=== PATIENT | female | born 1975 | race Caucasian/White ===

== ENCOUNTER 2019-04-21 01:47 | Emergency (ER) | payer OTHER, SELFPAY ==
--- NOTE | 2019-04-21 01:48 | DI.RAD.S_ITS ---
PROCEDURE: XR CHEST 1V INDICATIONS: Chest pain TECHNIQUE: One view of the chest was acquired. COMPARISON: None. FINDINGS: Surgical changes and devices: None. Lungs and pleura: There are bilateral nodular opacities associated with the anterior aspects of the 1st ribs. Lungs are otherwise clear. No pleural effusions or pneumothorax. Mediastinum: Mediastinal contours appear normal. Heart size is normal. Bones and chest wall: No suspicious bony lesions. Overlying soft tissues appear unremarkable. IMPRESSION: 1. No acute cardiopulmonary disease. Dictated by: Guevara Burleson M.D. on 04/21/2019 at 9:38 Approved by: Guevara Burleson M.D. on 04/21/2019 at 9:46
--- NOTE | 2019-04-21 01:48 | ED.CHESTPAIN ---
HPI - Chest Pain General Chief Complaint: Chest Pain Stated Complaint: Chest, Arm, and Jaw pain for 2 days Time Seen by Provider: 04/21/19 01:47 Source: patient Mode of arrival: EMS Limitations: no limitations History of Present Illness HPI narrative: 43-year-old female here for evaluation of chest pain. Patient states that her symptoms started last evening when she laid down to go to bed. She states she had the same thing the night prior. She also states she had the same thing several weeks ago. She states that it felt like she was having a panic attack. Last evening she stated she laid down and had the same symptoms she had this evening. She states that she just laid in bed and the symptoms never went away. She woke up in the morning and went to work and had no symptoms during the day. She came home from work without any symptoms. Then last evening they came on again. Did not seem to get worse with movement or breathing or palpation. She received aspirin and nitroglycerin by EMS prior to arrival. States that upon arrival here to the emergency department her symptoms seem to be improving. Related Data Allergies Allergy/AdvReac Type Severity Reaction Status Date / Time liquid codeine AdvReac Uncoded 04/21/19 02:00 Review of Systems Constitutional Denies headache(s) ENT Ears, Nose, Mouth, and Throat: Denies headache(s) Cardiovascular Reports chest pain, Denies syncope, Denies rapid heart rate, Denies lightheadedness and Denies dyspnea Respiratory Denies cough and Denies dyspnea Gastrointestinal Gastrointestinal: Denies abdominal pain, Denies nausea and Denies vomiting Musculoskeletal Denies myalgias and Denies arthralgias Integumentary/Breasts Denies rash Neurologic Denies syncope and Denies headache(s) Hematologic/Lymphatic Denies easy bleeding and Denies easy bruising [facility] Medical History Patient denies medical problems (Acute) Social History Smoking Status: Current every day smoker Social History Smoking Status: Current every day smoker Exam Initial Vital Signs Initial Vital Signs: Vital Signs Temperature 98.3 F 04/21/19 02:01 Pulse Rate 63 04/21/19 02:01 Respiratory Rate 18 04/21/19 02:01 Blood Pressure 99/61 04/21/19 02:01 Pulse Oximetry 98 04/21/19 02:01 Const General: cooperative, well developed, well groomed and No acute distress Orientation: alert, awake and oriented x3 HENMT Head: normal to inspection and normocephalic Resp Effort & Inspection: normal respiratory effort Auscultation: clear to auscultation bilaterally Cardio Rate: regular rate Rhythm: regular rhythm Pulses: radial pulses present GI Inspection: non-distended Palpation: soft, No firm and No tender Skin Lesions: no lesions Rashes: no rashes Neuro General: alert, awake and oriented x3 Cognition: normal cognition Speech: speech normal Motor: muscle tone normal throughout Sensory Exam: no sensory deficits noted Extrem General: normal to inspection and capillary refill normal Psych Appearance: grossly normal and well kempt Scores HEART Score Heart Score history: Slightly Suspicious Heart Score EKG: Normal Heart Score Age: < 45 years old Heart Score risk factors: No known risk factors Heart Score troponin: < or = to normal limit Heart Score Total: 0 Course Orders Ordered: ED Orders 04/21/19 01:48 XR chest 1V Stat EKG-12 Lead Stat 04/21/19 01:55 Basic Metabolic Panel Stat Complete Blood Count AUTO DIFF Stat Troponin I Stat 04/21/19 03:55 Troponin I Stat Vital Signs - 8 hr 04/21/19 02:01 04/21/19 02:23 04/21/19 03:30 Temperature 98.3 F 97.6 F Pulse Rate 63 63 58 L Respiratory Rate 18 11 L 14 Blood Pressure 99/61 Blood Pressure [Right Arm] 95/60 95/54 L Pulse Oximetry 98 95 95 04/21/19 04:26 Temperature Pulse Rate 59 L Respiratory Rate 14 Blood Pressure Blood Pressure [Right Arm] 93/59 L Pulse Oximetry 95 MDM - Chest Pain Lab Data Attestation: I reviewed the patient's lab results. Result diagrams: 04/21/19 01:55 04/21/19 01:55 Lab Results 04/21/19 04/21/19 04/21/19 Range/Units 01:55 01:55 03:55 WBC 9.3 (4.5-11.0) X10^3/uL RBC 4.14 (4.0-5.2) X10^6/uL Hgb 13.6 (12.0-16.0) g/dL Hct 39.6 (36-46) % MCV 95.6 (80-100) fL MCH 32.9 (26-34) PG MCHC 34.4 (30-36) % RDW 12.5 (11.6-14.8) % Plt Count 249 (150-400) X10^3/uL Neut % (Auto) 53.7 (50-75) % Lymph % (Auto) 33.8 (25-40) % Phelps % (Auto) 7.7 (3-14) % Eos % (Auto) 3.6 (2-4) % Baso % (Auto) 1.2 (0-2) % Neut # (Auto) 5000 (6255-3851) /uL Lymph # (Auto) 3200 (1012-7361) /uL Phelps # (Auto) 700 (0-900) /uL Eos # (Auto) 300 (0-450) /uL Baso # (Auto) 100 (0-100) /uL Sodium 142 (137-145) mmol/L Potassium 3.9 (3.4-5.1) mmol/L Chloride 111 H (98-107) mmol/L Carbon Dioxide 24 (22-32) mmol/L BUN 17 (7-17) mg/dL Creatinine 0.60 (0.52-1.04) mg/dL Estimated GFR > 60.0 (>60) mL/min BUN/Creatinine Ratio 28.3 H (6-22) Glucose 92 (70-100) mg/dL Calcium 8.8 (8.4-10.2) mg/dL Troponin I 0.015 < 0.012 (0.01-0.034) ng/mL ECG Data Attestation: I personally reviewed and interpreted this ECG as follows: Prior ECG tracings: not available for review Interpretation: Sinus bradycardia Ventricular rate of 59 Normal axis Normal QRS Normal QRS Normal QTC No ST T wave changes MDM Narrative Medical decision making narrative: Patient has a low heart score. EKG is unremarkable. Troponin negative x2. Improvement in symptoms while here in the ER. Low suspicion for ACS. Will hold on further workup for now. Discuss follow-up with her primary provider in order to obtain a stress test. She is given return precautions and follow-up instructions. She expressed understanding and agreement with plan. Discharge Plan Departure Patient Disposition: Home Clinical Impression: Atypical chest pain Discharge Date/Time: 04/21/19 04:58 Instructions: DI for Atypical Chest Pain Activity Restrictions/Additional Instructions: Recommend you talk with your medical insurance coder regarding a referral to have a stress test completed. Until then you have no restrictions on your activity unless you develop the symptoms while exercising. Any work-related restrictions will have to come from your medical department. Return to the emergency department for any new or worsening symptoms Stand Alone Forms: Work Release Note
[2019-04-21 02:01] VITALS: BP 99/61; PULSE 63; RESP 18; TEMP 36.8; O2SAT 98; BMI 27.5
[2019-04-21 02:06] LABS: Add Manual Diff / Slide Review NO; Basophils Absolute Auto 100 /uL (0-100); Basophils Percent Auto 1.2 % (0-2); Eosinophils Absolute Auto 300 /uL (0-450); Eosinophils Percent Auto 3.6 % (2-4); Hematocrit 39.6 % (36-46); Hemoglobin 13.6 g/dL (12.0-16.0); Lymphocytes Absolute Auto 3200 /uL (1100-4500); Lymphocytes Percent Auto 33.8 % (25-40); Mean Corpuscular HGB Conc 34.4 % (30-36); Mean Corpuscular Hemoglobin 32.9 PG (26-34); Mean Corpuscular Volume 95.6 fL (80-100); Monocytes Absolute Auto 700 /uL (0-900); Monocytes Percent Auto 7.7 % (3-14); Neutrophils Absolute Auto 5000 /uL (1500-7000); Neutrophils Percent Auto 53.7 % (50-75); Platelet Count 249 X10^3/uL (150-400); Red Blood Cell Count 4.14 X10^6/uL (4.0-5.2); Red Cell Distribution Width 12.5 % (11.6-14.8); White Blood Cell Count 9.3 X10^3/uL (4.5-11.0)
[2019-04-21 02:14] LABS: BUN Creatinine Ratio 28.3 (6-22); Blood Urea Nitrogen 17 mg/dL (7-17); Calcium 8.8 mg/dL (8.4-10.2); Carbon Dioxide 24 mmol/L (22-32); Chloride 111 mmol/L (98-107); Estimated Glomerular Filt Rate > 60.0 mL/min (>60); Glucose 92 mg/dL (70-100); HEMOLYSIS 18 (0-50); Potassium 3.9 mmol/L (3.4-5.1); Sodium 142 mmol/L (137-145)
[2019-04-21 02:23] VITALS: BP 95/60; PULSE 63; RESP 11; TEMP 36.4; O2SAT 95
[2019-04-21 02:26] LABS: Troponin I 0.015 ng/mL (0.01-0.034)
[2019-04-21 03:30] VITALS: BP 95/54; PULSE 58; RESP 14; O2SAT 95
[2019-04-21 04:26] VITALS: BP 93/59; PULSE 59; RESP 14; O2SAT 95
[2019-04-21 04:26] LABS: Troponin I < 0.012 ng/mL (0.01-0.034)
== END 2019-04-21 04:58 | disposition home or self-care (01) ==
PROVIDERS: Emergency Provider Emergency Medicine
DX: R07.89 Other chest pain (principal)
CPT/HCPCS: 36415; 36591; 71045; 80048; 84484; 85025; 93005; 93010; 99283; 99285

== ENCOUNTER 2020-05-31 13:35 | Emergency (ER) | payer OTHER, SELFPAY ==
[2020-05-31 13:50] VITALS: BP 118/65; PULSE 87; RESP 14; TEMP 36.6; O2SAT 98; BMI 29.2
--- NOTE | 2020-05-31 14:10 | DI.CT.S_ITS ---
PROCEDURE: CT ABDOMEN PELVIS W CON INDICATIONS: concerns for fistula in rectum/vaginal wall TECHNIQUE: After the administration of oral and rectal and intravenous contrast, 5 mm thick sections acquired from the diaphragms to the symphysis. 5 mm thick coronal and sagittal reformats were performed. For radiation dose reduction, the following was used: automated exposure control, adjustment of mA and/or kV according to patient size. COMPARISON: [facility], CR, XR CHEST 1V, 04/21/2019, 1:52. FINDINGS: Image quality: Excellent. ABDOMEN: Lung bases: Lung bases are clear. Heart size is normal. Solid organs: Liver is normal in size and enhancement. Gallbladder has been removed. Biliary system is non-dilated. Pancreas enhances normally. Spleen is normal in size and enhancement. No adrenal nodules. Kidneys are normal in size and enhancement, without hydronephrosis. Peritoneum and bowel: Stomach, small bowel, and colon loops are normal in caliber and wall thickness. No free fluid or air. Nodes and vessels: No retroperitoneal or mesenteric adenopathy. Aorta and inferior vena cava are normal in caliber. Miscellaneous: No ventral hernias. PELVIS: Genitourinary: Bladder wall thickness is normal. This patient is status post hysterectomy. No adnexal masses are seen. Scrutiny is given to the vagina. No definite hyperdense material can be seen within the vagina to suggest rectovaginal fistula based upon these images. Miscellaneous: No inguinal hernias or adenopathy. Bones: No suspicious bony lesions. No vertebral body compression fractures. Mild levoconvex scoliotic curvature is noted. IMPRESSION: No findings of rectovaginal fistula are detected. No hyperdense material can be seen within the vagina in this patient who was given rectal contrast. Incidental note is made of: Cholecystectomy Hysterectomy Levoconvex scoliotic curvature Dictated by: Ahsan Ward M.D. on 05/31/2020 at 16:16 Approved by: Ahsan Ward M.D. on 05/31/2020 at 16:19
--- NOTE | 2020-05-31 14:21 | ED_ITS ---
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 Patient reports severe discomfort and pressure and describes as things are falling out of my vagina. She reports her pain is as aches and intermittent stabbing pain as well. It feels like virginal is gonna burst when she tries bowel movements. And she reports poops coming out of her vagina and noticed this happend in November, January, and before coming into ED. patient also reports has bought smell to her vagina and has unusual discharge which appears to be white and thick with brownish discolor. Patient has not had sexual intercourse last 1.5 years due to pain. She reports chills for last 1 ear but denies fever, nausea or vomiting. Patient is currently waiting for woman's wellness evaluation per her provider next week and hoping to get a referral to [facility]. Related Data Allergies Allergy/AdvReac Type Severity Reaction Status Date / Time guaifenesin Allergy Verified 05/31/20 13:56 lidocaine Allergy Verified 05/31/20 13:56 Review of Systems <LISA Orosco - Last Filed: 05/31/20 20:14> Review of Systems Narrative: General: Denies fever, (+) chills, fatigue, malaise, sweats. HEENT: Denies sinus pain, ear pain, sore throat, difficulty swallowing, dizziness. Respiratory: Denies dyspnea, cough, wheezing, hemoptysis, sputum. Cardiovascular: Denies chest pain, palpitations, orthopnea, edema. Gastrointestinal: Denies nausea, vomiting, abdominal pain, diarrhea, constipation, melena. : See HPI Musculoskeletal: Denies weakness, joint pain or bony pain. Skin: Denies rash, skin lesions, or other. Neurologic: Denies weakness, headache, numbness, change in speech, confusion, seizures, incoordination. Psychiatric: No concerning psychosocial issues. 12-point review of systems is negative except for those stated above. Patient History <LISA Orosco - Last Filed: 05/31/20 20:14> Medical History (Updated 05/31/20 @ 20:00 by LISA Orosco) Neck ache (Acute) Patient denies medical problems (Acute) Surgical History (Updated 05/31/20 @ 20:01 by LISA Orosco) H/O vaginal hysterectomy (Acute) Smoking Status: Current every day smoker alcohol intake frequency: holidays/special occasions only Substance Use Type: does not use Exam <LISA Orosco - Last Filed: 05/31/20 20:14> Narrative Exam Narrative: GEN: Alert, oriented x 3, well appearing and nourished, and in no acute distress. Head: Normal cephalic, atraumatic. No scalp or temporal tenderness, palpable mass or rash. EYES: Pupils are equal, round, and reactive to light and accommodation. Extraocular muscles are intact bilaterally. There is no subconjunctival hemorrhage, exudate and sclera non-icteric. ENT: Hearing grossly intact. Nose without bleeding, purulent discharge or deviation. Mucous membrane moist, no mucosal lesion. Throat without erythema, tonsillar hypertrophy or exudate. Uvula in midline, airway patent. Neck: Trachea in midline. No JVD, non-tender without lymphadenopathy. No masses or thyroid megaly. Supple, non-tender and no meningeal signs. CARDIAC: Normal regular rate and rhythm without murmurs, gallops, or rubs. No chest wall tenderness. No peripheral edema, cyanosis or pallor. Capillary refill is less than 2 seconds. RESPIRATORY: Lungs are clear to auscultate bilaterally. No cough, wheezes, rales, or rhonchi. No stridor, respiratory distress, increase work of breathing, or accessary muscle used. ABD: Abdomen soft, nontender and non-distended. No guarding or rebound tenderness to palpate. Bowel sounds are normal in all 4 quadrants. There is no palpable masses or organomegaly. EXT: Full painless ROM of all extremities with no loss of sensation, strength, effusion or edema. SKIN: Warm, dry, normal color for patient. No erythema, lesions or rash over vi sible areas. BACK: Nontender without deformity or crepitance. No flank tenderness. NEUROLOGICAL: Alert and oriented to place, time and person. Sensation and motor function intact bilaterally. No facial droops, dysphasia. PSYCHIATRIC: Good judgement and reason, without hallucinations, abnormal affect or abnormal behaviors during the examination. Patient is not suicidal. Initial Vital Signs Initial Vital Signs: Vital Signs Temperature 97.9 F 05/31/20 13:50 Pulse Rate 87 05/31/20 13:50 Respiratory Rate 14 05/31/20 13:50 Blood Pressure 118/65 05/31/20 13:50 Pulse Oximetry 98 05/31/20 13:50 External Female Exam: normal external appearance Speculum Exam - Vagina: normal appearance of the vagina, normal vaginal discharge, not erythematous, no foreign bodies and no swelling Speculum Exam - Cervix: other (No abnormal vaginal discharge appreciated.) Bimanual Exam- Vagina & Uterus: normal bimanual exam and uterus absent Bimanual Exam- Adnexa, other: no masses OB/External & Speculum: no foreign bodies <Dao Nielsen MD - Last Filed: 06/01/20 07:21> Initial Vital Signs Initial Vital Signs: Vital Signs Temperature 97.9 F 05/31/20 13:50 Pulse Rate 87 05/31/20 13:50 Respiratory Rate 14 05/31/20 13:50 Blood Pressure 118/65 05/31/20 13:50 Pulse Oximetry 98 05/31/20 13:50 Scores <LISA Orosco - Last Filed: 05/31/20 20:14> GCS [place] coma scale eye opening: Spontaneous [place] coma scale verbal response: Orientated [place] coma scale motor response: Obey commands Mainor coma scale total score: 15 qSOFA Altered Mental Status (GCS <15): No Respiratory rate greater than/equal to 22: No Systolic blood pressure less than or equal to 100: No qSOFA Total: 0 0-1 Not High Risk 1-3 High risk Course <LISA Orosco - Last Filed: 05/31/20 20:14> Orders Ordered: ED Orders 05/31/20 14:10 CT abdomen pelvis w con Stat 05/31/20 14:51 Basic Metabolic Panel Stat Complete Blood Count AUTO DIFF Stat Lactate (Lactic Acid) Stat 05/31/20 17:37 Genital Culture Stat Vital Signs Vital signs: Vital Signs - 8 hr 05/31/20 13:50 05/31/20 17:28 Temperature 97.9 F Pulse Rate 87 75 Respiratory Rate 14 18 Blood Pressure 118/65 117/61 Pulse Oximetry 98 96 <Dao Nielsen MD - Last Filed: 06/01/20 07:21> Orders Ordered: ED Orders 05/31/20 14:10 CT abdomen pelvis w con Stat 05/31/20 14:51 Basic Metabolic Panel Stat Complete Blood Count AUTO DIFF Stat Lactate (Lactic Acid) Stat 05/31/20 17:37 Genital Culture Stat Vital Signs Vital signs: Vital Signs - 8 hr 05/31/20 13:50 05/31/20 17:28 Temperature 97.9 F Pulse Rate 87 75 Respiratory Rate 14 18 Blood Pressure 118/65 117/61 Pulse Oximetry 98 96 MDM - Female Genitourinary <LISA Orosco - Last Filed: 05/31/20 20:14> Differential Diagnosis Differential diagnosis: Likely urinary tract infection and other (Vaginal infection, STI, rectal vaginal fistula, PID) Medical Records Attestation: I reviewed the patient's medical records. Lab Data Attestation: I reviewed the patient's lab results. Result diagrams: 05/31/20 14:51 05/31/20 14:51 Labs: Lab Results 05/31/20 05/31/20 05/31/20 Range/Units 14:04 14:51 14:51 WBC 8.9 (4.5-11.0) X10^3/uL RBC 4.23 (4.0-5.2) X10^6/uL Hgb 14.2 (12.0-16.0) g/dL Hct 40.8 (36-46) % MCV 96.4 (80-100) fL MCH 33.5 (26-34) PG MCHC 34.7 (30-36) % RDW 12.6 (11.6-14.8) % Plt Count 224 (150-400) X10^3/uL Neut % (Auto) 63.0 (50-75) % Lymph % (Auto) 25.9 (25-40) % [place] % (Auto) 7.5 (3-14) % Eos % (Auto) 2.6 (2-4) % Baso % (Auto) 1.0 (0-2) % Neut # (Auto) 5600 (7000-8321) /uL Lymph # (Auto) 2300 (1584-5698) /uL [place] # (Auto) 700 (0-900) /uL Eos # (Auto) 200 (0-450) /uL Baso # (Auto) 100 (0-100) /uL Sodium 137 (137-145) mmol/L Potassium 4.0 (3.4-5.1) mmol/L Chloride 106 (98-107) mmol/L Carbon Dioxide 24 (22-32) mmol/L BUN 17 (7-17) mg/dL Creatinine 0.64 (0.52-1.04) mg/dL Estimated GFR > 60.0 (>60) mL/min BUN/Creatinine Ratio 26.6 H (6-22) Glucose 95 (70-100) mg/dL Lactate (0.7-2.1) mmol/L Calcium 9.2 (8.4-10.2) mg/dL Ur Chlamydia DNA (PCR) Not detected N gonorrhoeae DNA (PCR) Not detected 05/31/20 Range/Units 14:51 WBC (4.5-11.0) X10^3/uL RBC (4.0-5.2) X10^6/uL Hgb (12.0-16.0) g/dL Hct (36-46) % MCV (80-100) fL MCH (26-34) PG MCHC (30-36) % RDW (11.6-14.8) % Plt Count (150-400) X10^3/uL Neut % (Auto) (50-75) % Lymph % (Auto) (25-40) % [place] % (Auto) (3-14) % Eos % (Auto) (2-4) % Baso % (Auto) (0-2) % Neut # (Auto) (8561-9601) /uL Lymph # (Auto) (7849-7758) /uL [place] # (Auto) (0-900) /uL Eos # (Auto) (0-450) /uL Baso # (Auto) (0-100) /uL Sodium (137-145) mmol/L Potassium (3.4-5.1) mmol/L Chloride (98-107) mmol/L Carbon Dioxide (22-32) mmol/L BUN (7-17) mg/dL Creatinine (0.52-1.04) mg/dL Estimated GFR (>60) mL/min BUN/Creatinine Ratio (6-22) Glucose (70-100) mg/dL Lactate 0.7 (0.7-2.1) mmol/L Calcium (8.4-10.2) mg/dL Ur Chlamydia DNA (PCR) N gonorrhoeae DNA (PCR) Urine Dip Bedside Urine Glucose Negative Bedside Urine Bilirubin - Negative Bedside Urine Ketone - Negative Urine Specific [place] 1.015 Bedside Urine Occult Blood - Negative Bedside Urine pH 7.0 Bedside Urine Protein - Negative Bedside Urine Urobilinogen - Negative Bedside Urine Nitrite - Negative Bedside Urine Leukocytes - Negative Esterase Imaging Data CT scan - abdomen/pelvis: Radiologist's Impression: [place] [address] CT Scan Report Signed Patient: Samira Vasquez LMR#: [id number] : 1975Acct:[id number] Age/Sex: 44 / FDate of Service: 05/31/20 Loc: ED Accession Number: [id number] Procedure: CT abdomen pelvis w con Ordering Provider: Jesse Hussein PROCEDURE: CT ABDOMEN PELVIS W CON INDICATIONS: concerns for fistula in rectum/vaginal wall TECHNIQUE: After the administration of oral and rectal and intravenous contrast, 5 mm thick sections acquired from the diaphragms to the symphysis. 5 mm thick coronal and sagittal reformats were performed. For radiation dose reduction, the following was used: automated exposure control, adjustment of mA and/or kV according to patient size. COMPARISON: [facility], CR, XR CHEST 1V, 04/21/2019, 1:52. FINDINGS: Image quality: Excellent. ABDOMEN: Lung bases: Lung bases are clear. Heart size is normal. Solid organs: Liver is normal in size and enhancement. Gallbladder has been removed. Biliary system is non-dilated. Pancreas enhances normally. Spleen is normal in size and enhancement. No adrenal nodules. Kidneys are normal in size and enhancement, without hydronephrosis. Peritoneum and bowel: Stomach, small bowel, and colon loops are normal in caliber and wall thickness. No free fluid or air. Nodes and vessels: No retroperitoneal or mesenteric adenopathy. Aorta and inferior vena cava are normal in caliber. Miscellaneous: No ventral hernias. PELVIS: Genitourinary: Bladder wall thickness is normal. This patient is status post hysterectomy. No adnexal masses are seen. Scrutiny is given to the vagina. No definite hyperdense material can be seen within the vagina to suggest rectovaginal fistula based upon these images. Miscellaneous: No inguinal hernias or adenopathy. Bones: No suspicious bony lesions. No vertebral body compression fractures. Mild levoconvex scoliotic curvature is noted. IMPRESSION: No findings of rectovaginal fistula are detected. No hyperdense material can be seen within the vagina in this patient who was given rectal contrast. Incidental note is made of: Cholecystectomy Hysterectomy Levoconvex scoliotic curvature Dictated by: Ahsan Ward M.D. on 05/31/2020 at 16:16 Approved by: Ahsan Ward M.D. on 05/31/2020 at 16:19 [facility] Narrative Medical decision making narrative: This is a 44 year female who presents to ED with chief complain of pelvic exam with unusual vaginal discharge which appears to be stool which has happened intermittently since November this year. Patient has history of vaginal hysterectomy with bladder sling in 2011 and had experienced complication hand had repair surgery to remove bladder sling in 2013. The patient denies urinary symptoms. CBC without leukocytosis. Unremarkable chemistry test. No indication for UTI. Urine GC/chlamydia and genial culture are pending. Pelvic exam was unremarkable without unusual vaginal discharge, signs of infection. Patient did not have any tenderness with bimanual palpation. No obvious rectovaginal fistula was appreci ated during exam. Patient is afebrile with within normal vital signs. Patient reports she has a follow-up appoint with prior care physician next week for women's wellness exam and she is hoping to get a referral to [facility] specialist for an evaluation for ongoing pelvic pain and unusual vaginal discharge which appears to be like stools. CT test of abdomen/pelvis that was obtained with IV, oral, rectal contrast show findings of rectovaginal fistula. Findings were shared with patient and her significant other. Unclear for patient's pelvic discomfort and unusual discharge or dyspareunia. The patient was encouraged to follow up with primary care physician next week and to discuss a possible referral to [facility] cancer specialist for her symptom including dyspareunia and return precautions. Patient verbalized understanding and agreement with the treatment plan. <Dao Nielsen MD - Last Filed: 06/01/20 07:21> Lab Data Labs: Lab Results 05/31/20 05/31/20 05/31/20 Range/Units 14:04 14:51 14:51 WBC 8.9 (4.5-11.0) X10^3/uL RBC 4.23 (4.0-5.2) X10^6/uL Hgb 14.2 (12.0-16.0) g/dL Hct 40.8 (36-46) % MCV 96.4 (80-100) fL MCH 33.5 (26-34) PG MCHC 34.7 (30-36) % RDW 12.6 (11.6-14.8) % Plt Count 224 (150-400) X10^3/uL Neut % (Auto) 63.0 (50-75) % Lymph % (Auto) 25.9 (25-40) % [place] % (Auto) 7.5 (3-14) % Eos % (Auto) 2.6 (2-4) % Baso % (Auto) 1.0 (0-2) % Neut # (Auto) 5600 (6414-5742) /uL Lymph # (Auto) 2300 (2811-7088) /uL [place] # (Auto) 700 (0-900) /uL Eos # (Auto) 200 (0-450) /uL Baso # (Auto) 100 (0-100) /uL Sodium 137 (137-145) mmol/L Potassium 4.0 (3.4-5.1) mmol/L Chloride 106 (98-107) mmol/L Carbon Dioxide 24 (22-32) mmol/L BUN 17 (7-17) mg/dL Creatinine 0.64 (0.52-1.04) mg/dL Estimated GFR > 60.0 (>60) mL/min BUN/Creatinine Ratio 26.6 H (6-22) Glucose 95 (70-100) mg/dL Lactate (0.7-2.1) mmol/L Calcium 9.2 (8.4-10.2) mg/dL Ur Chlamydia DNA (PCR) Not detected N gonorrhoeae DNA (PCR) Not detected 05/31/20 Range/Units 14:51 WBC (4.5-11.0) X10^3/uL RBC (4.0-5.2) X10^6/uL Hgb (12.0-16.0) g/dL Hct (36-46) % MCV (80-100) fL MCH (26-34) PG MCHC (30-36) % RDW (11.6-14.8) % Plt Count (150-400) X10^3/uL Neut % (Auto) (50-75) % Lymph % (Auto) (25-40) % [place] % (Auto) (3-14) % Eos % (Auto) (2-4) % Baso % (Auto) (0-2) % Neut # (Auto) (2067-7433) /uL Lymph # (Auto) (1162-4568) /uL [place] # (Auto) (0-900) /uL Eos # (Auto) (0-450) /uL Baso # (Auto) (0-100) /uL Sodium (137-145) mmol/L Potassium (3.4-5.1) mmol/L Chloride (98-107) mmol/L Carbon Dioxide (22-32) mmol/L BUN (7-17) mg/dL Creatinine (0.52-1.04) mg/dL Estimated GFR (>60) mL/min BUN/Creatinine Ratio (6-22) Glucose (70-100) mg/dL Lactate 0.7 (0.7-2.1) mmol/L Calcium (8.4-10.2) mg/dL Ur Chlamydia DNA (PCR) N gonorrhoeae DNA (PCR) Urine Dip Bedside Urine Glucose Negative Bedside Urine Bilirubin - Negative Bedside Urine Ketone - Negative Urine Specific [place] 1.015 Bedside Urine Occult Blood - Negative Bedside Urine pH 7.0 Bedside Urine Protein - Negative Bedside Urine Urobilinogen - Negative Bedside Urine Nitrite - Negative Bedside Urine Leukocytes - Negative Esterase Discharge Plan Departure Patient Disposition: Home Clinical Impression: Pelvic pain, Vaginal discharge Discharge Date/Time: 05/31/20 18:10 Instructions: DI for Vaginal Discharge, DI for Pelvic Pain Activity Restrictions/Additional Instructions: You have been diagnosed with [ pelvic discomfort and vaginal discharge. Per pelvic and abdominal CT with IV/oral/rectal contrast, no findings of rectovaginal fistula detected. Tests were unremarkable. Urine test was negative for infection. Pelvic exam was unremarkable. General culture and GC/chlamydia test is pending and you will receive a phone call if you require antibiotic medication treatment.]. What to do: *Take your medications as directed. You can take [id number] Tylenol and or Motrin as needed. *Follow up with your primary care provider next week as scheduled. Let them know you were seen in the ED and that we asked you to be seen in follow up. Please let them know your seen in ED and present to your provider with CT scan result that has been provided to you. *Return to ED if you have any new, worsening, or concerning symptoms, such as [fever, chills, unable to tolerate fluids, worsening pain/discharge, chest pain, breathing difficulty or any acute concerns]. Referrals: [facility] [Outside] <Dao Nielsen MD - Last Filed: 06/01/20 07:21> [facility] Attestation: I was immediately available in the department for consultation. This documentation has been reviewed and I agree with assessment and plan. Supervised by Dao Nielsen MD
[2020-05-31 14:59] LABS: Add Manual Diff / Slide Review NO; Basophils Absolute Auto 100 /uL (0-100); Eosinophils Absolute Auto 200 /uL (0-450); Eosinophils Percent Auto 2.6 % (2-4); Hematocrit 40.8 % (36-46); Hemoglobin 14.2 g/dL (12.0-16.0); Lymphocytes Absolute Auto 2300 /uL (1100-4500); Lymphocytes Percent Auto 25.9 % (25-40); Mean Corpuscular HGB Conc 34.7 % (30-36); Mean Corpuscular Hemoglobin 33.5 PG (26-34); Mean Corpuscular Volume 96.4 fL (80-100); Monocytes Absolute Auto 700 /uL (0-900); Monocytes Percent Auto 7.5 % (3-14); Neutrophils Absolute Auto 5600 /uL (1500-7000); Platelet Count 224 X10^3/uL (150-400); Red Blood Cell Count 4.23 X10^6/uL (4.0-5.2); Red Cell Distribution Width 12.6 % (11.6-14.8); White Blood Cell Count 8.9 X10^3/uL (4.5-11.0)
[2020-05-31 15:15] LABS: Lactate (Lactic Acid) 0.7 mmol/L (0.7-2.1)
[2020-05-31 15:16] LABS: BUN Creatinine Ratio 26.6 (6-22); Blood Urea Nitrogen 17 mg/dL (7-17); Calcium 9.2 mg/dL (8.4-10.2); Carbon Dioxide 24 mmol/L (22-32); Chloride 106 mmol/L (98-107); Estimated Glomerular Filt Rate > 60.0 mL/min (>60); Glucose 95 mg/dL (70-100); HEMOLYSIS 21 (0-50); Sodium 137 mmol/L (137-145)
--- NOTE | 2020-05-31 15:50 | PC.NURSE ---
Patient reports had hysterectomy in October with bladder sling inserted. Reports symptoms began shortly after procedure and feels as though sling is not working correctly. Reports difficulty urinating, pressure and discomfort in vaginal region, and stool discharge out of vagina after BM.
[2020-05-31 17:28] VITALS: BP 117/61; PULSE 75; RESP 18; O2SAT 96
[2020-05-31 21:54] LABS: Urine N gonorrhoeae NOT DETECTED
[2020-05-31 21:59] LABS: Urine Chlamydia NOT DETECTED
== END 2020-05-31 18:10 | disposition home or self-care (01) ==
PROVIDERS: Emergency Provider Nurse Practitioner Family
DX: R10.2 Pelvic and perineal pain (principal); N89.8 Other specified noninflammatory disorders of vagina
CPT/HCPCS: 36415; 74177; 80048; 81003; 83605; 85025; 87070; 87147; 87205; 87491; 87591; 99284; 99285; Q9967

== ENCOUNTER → 2021-01-20 16:09 | Outpatient (CLI) | payer OTHER, SELFPAY ==
[2021-01-20] MEDS: COVID-19 VACC #1, MRNA(MOD) 100 MCG/0.5 ML VIAL IM (16:18)
== END ==
PROVIDERS: Visit Provider Internal Medicine
DX: Z23 Encounter for immunization (principal)
CPT/HCPCS: 0011A; 91301

== ENCOUNTER → 2021-02-17 15:22 | Outpatient (CLI) | payer OTHER, SELFPAY ==
[2021-02-17] MEDS: COVID-19 VACC #2, MRNA(MOD) 100 MCG/0.5 ML VIAL IM (15:34)
== END ==
PROVIDERS: Visit Provider Internal Medicine
DX: Z23 Encounter for immunization (principal)
CPT/HCPCS: 0012A; 91301

== ENCOUNTER 2021-03-03 12:21 | Emergency (ER) | payer OTHER, SELFPAY ==
[2021-03-03 12:25] VITALS: BP 124/78; PULSE 90; RESP 14; TEMP 36.3; O2SAT 98; BMI 30.4
--- NOTE | 2021-03-03 13:40 | ED.NECK ---
HPI - Neck Pain/Injury General Chief Complaint: Neck Pain/Injury Stated Complaint: neck pain/possible ruptured disk Time Seen by Provider: 03/03/21 13:40 Source: patient Mode of arrival: Ambulatory Limitations: no limitations History of Present Illness HPI Narrative: The patient is a 45-year-old female who has chronic ongoing neck pain since 2016 when she says she has herniated disc. Over the last 2 weeks she has had increasing neck pain and numbness and tingling in her right arm. She has been taking Tylenol and Flexeril as needed but she has significant decreased range of motion. She denies fever or chills. She says it feels better when there is traction on her neck. She tried going to a walk-in clinic for Toradol post told to come to the emergency department MD complaint: neck pain Onset (ago): week(s) (2) Related Data Home Medications Medication Instructions Recorded Confirmed acetaminophen 325 mg capsule 650 mg PO Q6H PRN 02/15/21 02/15/21 cyclobenzaprine 10 mg tablet 10 mg PO BEDTIME 02/15/21 02/15/21 esomeprazole magnesium 20 mg 20 mg PO DAILY 02/15/21 02/15/21 capsule,delayed release ibuprofen 800 mg tablet 800 mg PO TID 02/15/21 02/15/21 loratadine 10 mg tablet 10 mg PO DAILY 02/15/21 02/15/21 multivitamin 1 tab PO DAILY 02/15/21 02/15/21 Previous Rx's Medication Instructions Recorded hydrocodone-acetaminophen 1 tab PO Q6H PRN #10 tab 03/03/21 methocarbamol 1,500 mg PO Q8H PRN #30 tab 03/03/21 prednisone 40 mg PO DAILY #10 tab 03/03/21 Allergies Allergy/AdvReac Type Severity Reaction Status Date / Time guaifenesin Allergy Verified 03/03/21 12:30 lidocaine Allergy Verified 03/03/21 12:30 Review of Systems Review of Systems Narrative: GENERAL: Denies chills, fatigue, malaise, fever, sweats, travel HEENT: Denies sinus pain, ear pain, sore throat, difficulty swallowing, neck pain RESPIRATORY: Denies dyspnea, cough, wheezing, hemoptysis, sputum. CARDIOVASCULAR: Denies chest pain, palpitations, orthopnea, edema GASTROINTESTINAL: Denies nausea, vomiting, abdominal pain, diarrhea, constipation, melena. : Denies dysuria, frequency, incontinence, hematuria, urinary retention, flank pain. MUSCULOSKELETAL: See HPI SKIN: No rash, no erythema, no pruritus NEUROLOGIC: Denies weakness, dizziness, headache, numbness, change in speech, confusion PSYCHIATRIC: No concerning psychosocial issues. 12 point review of systems is negative except for those stated above and HPI Patient History Medical History Neck ache Patient denies medical problems Surgical History H/O vaginal hysterectomy Hx of cholecystectomy Hx of tubal ligation Family History Father Hypertension Gallstones Cancer Mother Gallstones Breast cancer Brother Gallstones Sister Breast cancer Grandmother Ovarian cancer Diabetes mellitus Breast cancer Social History marital status: unmarried,living together household members: significant other occupational status: employed Smoking Status: Current every day smoker alcohol intake: never substance use type: does not use Smoking Status: Current every day smoker alcohol intake frequency: holidays/special occasions only Substance Use Type: does not use Exam Initial Vital Signs Initial Vital Signs: Vital Signs Temperature 97.3 F L 03/03/21 12:25 Pulse Rate 90 03/03/21 12:25 Respiratory Rate 14 03/03/21 12:25 Blood Pressure 124/78 03/03/21 12:25 Pulse Oximetry 98 03/03/21 12:25 GENERAL: Patient appears in pain and in no acute distress. HEENT: Head atraumatic,EOMI, pupils reactive, face symmetric, moist mucous membranes NECK: Significant decreased range of motion tender to touch touch more on right paraspinal muscles no left CARDIOVASCULAR: Regular rate and rhythm without murmurs, rubs or gallops. RESPIRATORY: Breath sounds equal bilaterally, no wheezes rales or rhonchi. EXTREMITIES: Normal range of motion, no clubbing or edema. Neurovascularly intact NEUROLOGICAL: Alert and oriented x4.Normal gait and speech. Cranial nerves II through XII grossly intact. Decreased strength on right Radian median and ulnar nerve intact SKIN: Warm, dry, no laceration, no petechiae, no rashes or lesions. Course Orders Ordered: ED Orders 03/03/21 13:55 CT cervical spine wo con Stat Discontinued Medications Hydrocodone Bitart/Acetaminophen (Hydrocodone/Acet 5/325 Tablet) 2 tab PO NOW ONE Stop: 03/03/21 15:38 Last Admin: 03/03/21 15:48 Dose: 2 tab Documented by: EAMA Diazepam (Diazepam 5 Mg Tablet) 5 mg PO NOW ONE Stop: 03/03/21 13:46 Last Admin: 03/03/21 14:03 Dose: 5 mg Documented by: ANATOLY Ketorolac Tromethamine (Ketorolac 30 Mg/Ml Vial) 30 mg IM NOW ONE Stop: 03/03/21 13:46 Last Admin: 03/03/21 14:03 Dose: 30 mg Documented by: ANATOLY Vital Signs Vital signs: Vital Signs - 8 hr 03/03/21 12:25 03/03/21 16:07 Temperature 97.3 F L Pulse Rate 90 68 Respiratory Rate 14 14 Blood Pressure 124/78 121/69 Pulse Oximetry 98 98 MDM - Neck Pain/Injury Imaging Data CT - cervical spine: Radiologist's Impression: PROCEDURE: CT CERVICAL SPINE WO CON INDICATIONS: severe pain, known stenosis TECHNIQUE: Noncontrast 3 mm thick sections acquired from the skull base to the T4 level. Sagittal and coronal reformats were then constructed. For radiation dose reduction, the following was used: automated exposure control, adjustment of mA and/or kV according to patient size. COMPARISON: None. FINDINGS: Image quality: Excellent. Bones: No fractures or dislocations. Loss of cervical lordosis. There is degenerative disc disease moderate at C6-C7 causing mild central canal stenosis. Mild bilateral facet arthropathy at C4-C5 and C5-C6. Visualized superior ribs are intact. Soft tissues: Prevertebral soft tissues are normal in thickness. No paravertebral hematomas. No apical pneumothoraces. IMPRESSION: 1. No cervical spine fractures. 2. Degenerative disc and facet disease in cervical spine. Dictated by: Marie De La Cruz M.D. on 03/03/2021 at 14:23 MDM Narrative Medical decision making narrative: Patient has chronic ongoing neck issues she is given Lupton in the emergency department according to prescription monitoring she received 2 prescriptions of Lupton and estevez. Will try methocarbamol as a muscle relaxer which she has had in the past will also give her short course of prednisone. At this time recommend physical therapy and outpatient MRI. [place] Discharge Plan Departure Patient Disposition: Home Clinical Impression: Cervical radiculopathy Instructions: DI for Cervical Radiculopathy Activity Restrictions/Additional Instructions: *You have been diagnosed with cervical radiculopathy *What to do: At this time recommend he see Orthopedics. He may require physical therapy and outpatient MRI *Continue to take medications as directed--> SENT TO [facility] Prednisone 40 mg once a day for 5 days Methocarbamol 1500 mg for muscle spasm Lupton 1 tablet every 6 hours if needed for severe pain *Follow up with your primary care provider in 2-3 days *Return to ER if you should have increasing weakness, severe pain or any new, worsening or concerning symptoms CONTROLLED SUBSTANCE DISCHARGE (Narcotoic/benzodiazepine/Flexeril/Phenergan) 1. You have been prescribed narcotic medications, it does have acetaminophen/Tylenol/paracetamol in it, DO NOT TAKE MORE THAN 4,00mg in 24 hours of Tylenol. TRAMADOL DOES NOT CONTAIN TYLENOL 2. Please understand that we cannot provide further refills of narcotics, benzodiazepines or controlled substances through the ED and her pain management will need to be through your provider. 3. While on these medications you cannot drive or operate heavy machinery. 4. You cannot sign legal documents or perform any duties such as this. 5. As long as you're taking opiate pain medications he should also be taking a stool softener such as Colace, Dulcolax, MiraLAX or prune juice, to help avoid constipation. Prescriptions: New hydrocodone-acetaminophen 5-325 mg tablet 1 tab PO Q6H PRN (Reason: pain) Qty: 10 RF: 0 prednisone 20 mg tablet 40 mg PO DAILY Qty: 10 RF: 0 methocarbamol 750 mg tablet 1,500 mg PO Q8H PRN (Reason: muscle spasm) Qty: 30 RF: 0 No Action ibuprofen 800 mg tablet 800 mg PO TID RF: 0 acetaminophen [Tylenol] 325 mg capsule 650 mg PO Q6H PRNRF: 0 cyclobenzaprine 10 mg tablet 10 mg PO BEDTIME RF: 0 loratadine [Allergy Relief (loratadine)] 10 mg tablet 10 mg PO DAILY RF: 0 esomeprazole magnesium [Nexium] 20 mg capsule,delayed release(DR/EC) 20 mg PO DAILY RF: 0 multivitamin Tablet 1 tab PO DAILY RF: 0 Referrals: Yonas Ram [Primary Care Provider] -
--- NOTE | 2021-03-03 13:55 | DI.CT.S_ITS ---
PROCEDURE: CT CERVICAL SPINE WO CON INDICATIONS: severe pain, known stenosis TECHNIQUE: Noncontrast 3 mm thick sections acquired from the skull base to the T4 level. Sagittal and coronal reformats were then constructed. For radiation dose reduction, the following was used: automated exposure control, adjustment of mA and/or kV according to patient size. COMPARISON: None. FINDINGS: Image quality: Excellent. Bones: No fractures or dislocations. Loss of cervical lordosis. There is degenerative disc disease moderate at C6-C7 causing mild central canal stenosis. Mild bilateral facet arthropathy at C4-C5 and C5-C6. Visualized superior ribs are intact. Soft tissues: Prevertebral soft tissues are normal in thickness. No paravertebral hematomas. No apical pneumothoraces. IMPRESSION: 1. No cervical spine fractures. 2. Degenerative disc and facet disease in cervical spine. Dictated by: Marie De La Cruz M.D. on 03/03/2021 at 14:23 Approved by: Marie De La Cruz M.D. on 03/03/2021 at 14:27
[2021-03-03] MEDS: diazePAM 5 MG TABLET PO (14:03)
[2021-03-03] MEDS: KETOROLAC 30 MG/ML VIAL IM (14:03)
[2021-03-03] MEDS: HYDROCODONE/ACET 5/325 TABLET 2 TAB PO (15:48)
[2021-03-03 16:07] VITALS: BP 121/69; PULSE 68; RESP 14; O2SAT 98
== END 2021-03-03 16:09 | disposition home or self-care (01) ==
PROVIDERS: Emergency Provider Emergency Medicine; PCP Student in an Organized Health Care Education/Training Program
DX: M54.12 Radiculopathy, cervical region (principal)
CPT/HCPCS: 72125; 96372; 99284; J1885

== ENCOUNTER → 2021-03-12 08:40 | Outpatient (CLI) | payer OTHER, SELFPAY ==
--- NOTE | 2021-03-12 08:42 | DI.MRI.S_ITS ---
PROCEDURE: MR CERVICAL SPINE WO CON INDICATIONS: Cervical disc disorder with radiculopathy, unspeci TECHNIQUE: Noncontrast sagittal T1 spin echo and T2 fast spin echo, sagittal STIR, foraminal oblique sagittal T2 fast spin echo, and axial gradient echo or T2 fast spin echo through the cervical spine. COMPARISON: None. FINDINGS: Image quality: This examination is limited by involuntary motion artifact. Images are repeated, with some improvement. Alignment and Curvature: There is straightening of the normal cervical lordosis. No focal AP alignment abnormality is seen. Bone Marrow: Marrow demonstrates normal overall signal. Spinal Cord: Visualized spinal cord has normal size and signal. No cerebellar tonsillar herniation. Paraspinous Soft Tissues: No paravertebral masses. Prevertebral soft tissues are normal in thickness. C2-C3: Normal appearance. C3-C4: The disc height and disk signal are well-preserved. A mild degree of generalized disc osteophyte complex is seen. Mild to moderate facet hypertrophy is seen. Mild to moderate neural foraminal narrowing can seen. No central narrowing is seen. C4-C5: The disc height and disk signal are well-preserved. A mild degree of generalized disc osteophyte complex is seen. Moderate facet joint hypertrophy is seen. Mild to moderate bilateral neural foraminal narrowing can be seen. No significant central canal narrowing is seen. C5-C6: Minimal to mild loss of disc height is seen. Loss of disc signal is seen. Moderate disc osteophyte complex is seen, with a mild central disc osteophyte protrusion, as on series 6, image 35. Moderate facet joint hypertrophy is seen. [id number] right-sided and mild left-sided neural foraminal narrowing can be seen. Mild to moderate central canal narrowing is seen. There is associated mass effect upon the ventral spinal cord. C6-C7: Moderate loss of disc height is seen. Loss of disc signal is seen. Moderate disc osteophyte complex is seen, which is eccentric to the right. Uncovertebral joint hypertrophy is seen at this level. Mild to moderate facet hypertrophy is seen. There is moderate to severe right-sided and at least moderate left-sided neural foraminal narrowing seen. Mild to moderate central canal narrowing is seen. C7-T1: Normal appearance. 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 Dictated by: Ahsan Ward M.D. on 03/13/2021 at 7:52 Approved by: Ahsan Ward M.D. on 03/13/2021 at 7:56
== END ==
PROVIDERS: PCP Student in an Organized Health Care Education/Training Program; Referring Provider Family Medicine; Visit Provider Family Medicine
DX: M50.10 Cervical disc disorder with radiculopathy, unspecified cervical region (principal); M47.22 Other spondylosis with radiculopathy, cervical region
CPT/HCPCS: 72141

== ENCOUNTER 2021-03-14 10:57 | Emergency (ER) | payer OTHER, SELFPAY ==
[2021-03-14 11:05] VITALS: BP 132/76; PULSE 94; RESP 16; TEMP 36.6; O2SAT 98; BMI 29.5
--- NOTE | 2021-03-14 11:49 | ED.NECK ---
HPI - Neck Pain/Injury General Chief Complaint: Neck Pain/Injury Stated Complaint: right neck, shoulder, and arm pain Time Seen by Provider: 03/14/21 11:40 Source: patient Mode of arrival: Ambulatory History of Present Illness HPI Narrative: Patient is a 45-year-old female who has had a longstanding history of right-sided neck discomfort with pain radiating down her right arm. She has been seen by her primary doctor. She had an MRI performed yesterday. She states she does have a referral in to see the orthopedic/Neurology. She was at physical therapy this morning and had traction. States that afterwards she had it increasing discomfort and pain rating down her arm. She has pain medication and gabapentin and Flexeril that she has been on for years now. Related Data Home Medications Medication Instructions Recorded Confirmed acetaminophen 325 mg capsule 650 mg PO Q6H PRN 02/15/21 02/15/21 cyclobenzaprine 10 mg tablet 10 mg PO BEDTIME 02/15/21 02/15/21 esomeprazole magnesium 20 mg 20 mg PO DAILY 02/15/21 02/15/21 capsule,delayed release ibuprofen 800 mg tablet 800 mg PO TID 02/15/21 02/15/21 loratadine 10 mg tablet 10 mg PO DAILY 02/15/21 02/15/21 multivitamin 1 tab PO DAILY 02/15/21 02/15/21 Previous Rx's Medication Instructions Recorded hydrocodone-acetaminophen 1 tab PO Q6H PRN #10 tab 03/03/21 methocarbamol 1,500 mg PO Q8H PRN #30 tab 03/03/21 prednisone 40 mg PO DAILY #10 tab 03/03/21 prednisone 40 mg PO DAILY 5 Days #10 tab 03/14/21 Allergies Allergy/AdvReac Type Severity Reaction Status Date / Time lidocaine Allergy Verified 03/14/21 11:57 guaifenesin AdvReac Verified 03/14/21 11:57 Review of Systems Constitutional Constitutional: Reports system reviewed and no additional complaints, except as documented and Denies headache(s) ENT Ears, Nose, Mouth, and Throat: Denies vertigo and Denies headache(s) Cardiovascular Cardiovascular: Reports system reviewed and no additional complaints, except as documented Respiratory Respiratory: Reports system reviewed and no additional complaints, except as documented Musculoskeletal Comments: Neck pain Integumentary/Breasts Skin/Breast: Reports system reviewed and no additional complaints, except as documented Neurologic Neurologic: Reports system reviewed and no additional complaints, except as documented, Denies vertigo and Denies headache(s) Hematologic/Lymphatic On Anticoagulants: No Allergic/Immunologic Allergic/Immunologic: Reports system reviewed and no additional complaints, except as documented Patient History Medical History Neck ache Patient denies medical problems Surgical History H/O vaginal hysterectomy Hx of cholecystectomy Hx of tubal ligation Family History Father Hypertension Gallstones Cancer Mother Gallstones Breast cancer Brother Gallstones Sister Breast cancer Grandmother Ovarian cancer Diabetes mellitus Breast cancer Social History marital status: unmarried,living together household members: significant other occupational status: employed Smoking Status: Current every day smoker alcohol intake: never substance use type: does not use Smoking Status: Current every day smoker alcohol intake frequency: holidays/special occasions only Substance Use Type: does not use Exam Initial Vital Signs Initial Vital Signs: Vital Signs Temperature 97.8 F 03/14/21 11:05 Pulse Rate 94 H 03/14/21 11:05 Respiratory Rate 16 03/14/21 11:05 Blood Pressure 132/76 03/14/21 11:05 Pulse Oximetry 98 03/14/21 11:05 Const General: cooperative and comfortable Limitations: mental status not altered [facility] Head: normal to inspection and normocephalic Eyes General: appearance normal, both eyes and all related structures Resp Effort & Inspection: normal respiratory effort Cardio Rate: regular rate GI Inspection: non-distended Back/Spine/Pelvis Other: Tenderness right-sided paraspinal cervical region Skin Lesions: no lesions Rashes: no rashes Neuro Other: Radiculopathy down right arm in the C5-C6 distribution Extrem General: capillary refill normal Psych Appearance: grossly normal and well kempt Course Orders Ordered: Discontinued Medications Hydromorphone HCl (Hydromorphone 1 Mg Inj) 1 mg IM NOW ONE Stop: 03/14/21 11:51 Vital Signs Vital signs: Vital Signs - 8 hr 03/14/21 11:05 Temperature 97.8 F Pulse Rate 94 H Respiratory Rate 16 Blood Pressure 132/76 Pulse Oximetry 98 MDM - Neck Pain/Injury MDM Narrative Medical decision making narrative: Longstanding history of cervical pain with radiculopathy. Had an increase in this discomfort after physical therapy this morning. I feel we can hold on any radiologic studies for now. She is already on medications that we would potentially start out of the emergency department except for prednisone which I will put her on for the next couple days. Informed her she should talk with her primary doctor about following up on the referrals. Patient is safe for discharge home. She was given return precautions. Discharge Plan Departure Patient Disposition: Home Clinical Impression: Neck and shoulder pain Instructions: Chronic Neck Pain Activity Restrictions/Additional Instructions: Recommend that you continue all of your medications as directed. I do recommend that you follow-up with a spine provider further referral given by your primary provider. Return to the emergency department for any new symptoms Prescriptions: New prednisone 20 mg tablet 40 mg PO DAILY 5 Days Qty: 10 RF: 0 No Action ibuprofen 800 mg tablet 800 mg PO TID RF: 0 acetaminophen [Tylenol] 325 mg capsule 650 mg PO Q6H PRNRF: 0 cyclobenzaprine 10 mg tablet 10 mg PO BEDTIME RF: 0 loratadine [Allergy Relief (loratadine)] 10 mg tablet 10 mg PO DAILY RF: 0 esomeprazole magnesium [Nexium] 20 mg capsule,delayed release(DR/EC) 20 mg PO DAILY RF: 0 multivitamin Tablet 1 tab PO DAILY RF: 0 hydrocodone-acetaminophen 5-325 mg tablet 1 tab PO Q6H PRN (Reason: pain) Qty: 10 RF: 0 prednisone 20 mg tablet 40 mg PO DAILY Qty: 10 RF: 0 methocarbamol 750 mg tablet 1,500 mg PO Q8H PRN (Reason: muscle spasm) Qty: 30 RF: 0 Referrals: Yonas Ram [Primary Care Provider] -
[2021-03-14] MEDS: HYDROMORPHONE 1 MG INJ IM (11:59)
== END 2021-03-14 12:08 | disposition home or self-care (01) ==
PROVIDERS: Emergency Provider Emergency Medicine; PCP Student in an Organized Health Care Education/Training Program
DX: M54.2 Cervicalgia (principal); M25.511 Pain in right shoulder
CPT/HCPCS: 96372; 99283; J1170